=== PATIENT | male | born 1980 | race Caucasian/White ===

== ENCOUNTER → 2024-08-24 | Emergency (ER) | payer SELFPAY ==
[~2024-08-24] VITALS: Ht 175.3 cm; Wt 75.0 kg
[2024-08-24 00:28] VITALS: BP 124/77; PULSE 84; RESP 20; TEMP 98.5; O2SAT 100
[2024-08-24] MEDS: ONDANSETRON 4 MG TABLET PO ONE (00:57)
== END | disposition still patient (30) ==
LOC: EMS 00:30
DX: S09.90XA Unspecified injury of head, initial encounter (principal); Z02.89 Encounter for other administrative examinations; Z65.3 Problems related to other legal circumstances; V89.2XXA Person injured in unspecified motor-vehicle accident, traffic, initial encounter; Y93.89 Activity, other specified; Y92.410 Unspecified street and highway as the place of occurrence of the external cause; Y99.8 Other external cause status
CPT/HCPCS: 99283; Q0162